=== PATIENT | female | born 1990 | race American Indian/Alaskan Native ===

== ENCOUNTER 2017-06-13 20:32 | Emergency (ER) | payer OTHER, MEDICAID ==
[2017-06-14] MEDS ORDERED: MOTRIN PO ONE (01:02)
[2017-06-14] MEDS ORDERED: FLEXERIL PO ONE (01:03)
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
[2017-06-14 05:37] VITALS: BP 121/81
== END 2017-06-14 01:35 | disposition home or self-care (01) ==
LOC: ED 20:32
DX: Z04.3 Encounter for examination and observation following other accident (principal); G43.909 Migraine, unspecified, not intractable, without status migrainosus; Z90.49 Acquired absence of other specified parts of digestive tract; Z88.0 Allergy status to penicillin; V89.2XXA Person injured in unspecified motor-vehicle accident, traffic, initial encounter; Y93.89 Activity, other specified; Y99.8 Other external cause status; Y92.89 Other specified places as the place of occurrence of the external cause
CPT/HCPCS: 99282

== ENCOUNTER 2018-12-07 20:22 | Emergency (ER) | payer MEDICAID ==
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
[2018-12-07 21:33] LABS: Basophils # (Auto) 0.1 K/mm3 (0.0-0.1); Basophils % (Auto) 0.9 % (0.0-1.8); Eosinophils # (Auto) 0.1 K/mm3 (0.0-0.4); Eosinophils % (Auto) 1.1 % (0.0-4.3); Hematocrit 35.5 % (30.3-42.9); Hemoglobin 12.4 gm/dl (10.1-14.3); Lymphocytes # (Auto) 4.4 K/mm3 (1.2-5.4); Lymphocytes % (Auto) 40.1 % (13.4-35.0); Mean Corpuscular HGB Conc 35 % (30-34); Mean Corpuscular Volume 86 fl (79-97); Monocytes # (Auto) 0.7 K/mm3 (0.0-0.8); Monocytes % (Auto) 6.7 % (0.0-7.3); Platelet Count 221 K/mm3 (140-440); Red Blood Count 4.13 M/mm3 (3.65-5.03); Red Cell Distribution Width 13.9 % (13.2-15.2)
[2018-12-07 22:01] LABS: Bilirubin,Urine NEG (Negative); Blood,Urine NEG (Negative); Color,Urine Yellow (Yellow); Mucus,Urine 2+ /HPF; Protein,Urine <15 mg/dL mg/dL (Negative); Urobilinogen,Urine < 2.0 mg/dL (<2.0)
--- NOTE | 2018-12-08 00:30 | Ultrasound Report ---
PROCEDURE: US OB TRANSVAGINAL TECHNIQUE: Transvaginal imaging was obtained of the pelvis. HISTORY: 4 weeks preg, vag bleeding COMPARISONS: None FINDINGS: The uterus is anteverted measuring 9.6 x 5.1 x 5.9 cm. The endometrial thickness is 15 mm. There is n o evidence of an intrauterine gestational sac. There is minimal free fluid in the cul-de-sac. The left ovary is normal in size contour and echotexture and blood flow measured 3.7 x 1.7 x 2.8 cm. The right ovary measures 5.2 x 3.0 x 3.4 cm. Within the right ovary is a hypoechoic complex cyst omar uring up to 2.1 cm diameter possibly representing hemorrhagic cyst. There is also a hyperechoic 1.8 c m nodular density in the right ovary. The blood flow is normal bilaterally. IMPRESSION: No evidence of an IUP or ectopic at this time. Follow-up study recommended. Probable 2.1 cm hemorrhagic cyst in the right ovary. 1.8 cm hyperechoic nodular density in the right ovary. This is indeterminate.. This document is electronically signed by Torres Gastelum MD., December 08 2018 12:28:17 AM ET
--- NOTE | 2018-12-08 00:42 | Ultrasound Report ---
PROCEDURE: US OB <= 14 WEEKS FETUS TECHNIQUE: Transabdominal imaging was obtained of the pelvis. HISTORY: 4 weeks preg, vag bleeding COMPARISONS: None FINDINGS: The uterus is anteverted measuring 9.6 x 5.1 x 5.9 cm. The endometrial thickness is 15 mm. There is n o evidence of an intrauterine gestational sac. There is minimal free fluid in the cul-de-sac. The left ovary is normal in size contour blood flow and echotexture measuring 3.7 x 1.7 x 2.8 cm. The right ovary measures 5.2 x 3.0 x 3.4 cm. Within the right ovary is a hypoechoic 2.1 cm cyst most likely representing hemorrhagic cyst. There is also a hyperechoic 1.8 cm nodule in the right ovary wh ich is indeterminate. The blood flow is normal to the right ovary. IMPRESSION: No evidence of an IUP or ectopic sign. Follow-up study recommended. 2.1 cm hemorrhagic cyst in the right ovary. 1.8 cm hyperechoic nodule in the right ovary which is indeterminate.. This document is electronically signed by Torres Gastelum MD., December 08 2018 12:40:21 AM ET
[2018-12-08] MEDS ORDERED: TYLENOL PO ONE (01:09)
--- NOTE | 2018-12-08 01:09 | Emergency Department Report ---
ED Female HPI - General Chief complaint: Vaginal Bleeding Stated complaint: 4WKS AND BLEEDING Time Seen by Provider: 12/07/18 21:16 Source: patient Mode of arrival: Ambulatory Limitations: No Limitations - History of Present Illness Initial comments: 28 0 -[place] female presents to the emergency room stating she is 4 weeks and having vaginal bleeding and pain in her lower abdomen and back. She reports this onset started about 1:00pm. 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 Patient is 4 para [address] she is followed by Dr[address] Mccartney [employer]. He reports that the pain in her abdomen and back is crampy. MD Complaint: vaginal bleeding -: This afternoon Time: 13:00 Location: suprapubic Radiation: other (back) Severity scale (0 -10): 10 Quality: cramping Consistency: intermittent Improves with: none Worsens with: none Are you Now?: Yes Last Menstrual Period: 11/08/18 EDC: 08/15/19 Associated Symptoms: vaginal bleeding, abdominal pain - Related Data Sexually active: Yes : 4 Para: 3 Previous Rx's Medication Instructions Recorded Last Taken Type Cyclobenzaprine [Flexeril 10 MG 10 mg PO ONCE PRN #12 tablet 06/14/17 Unknown Rx TAB] Ibuprofen [Motrin] 800 mg PO Q8HR PRN #30 tablet 06/14/17 Unknown Rx Allergies Allergy/AdvReac Type Severity Reaction Status Date / Time Penicillins Allergy Hives Verified 07/09/15 02:02 ED Review of Systems ROS: Stated complaint: 4WKS AND BLEEDING Other details as noted in HPI Comment: All other systems reviewed and negative Gastrointestinal: abdominal pain Musculoskeletal: back pain ED Past Medical Hx - Past Medical History Hx Hypertension: No Hx Diabetes: No Hx Deep Vein Thrombosis: No Hx Renal Disease: No Hx Sickle Cell Disease: No Hx Headaches / Migraines: Yes Hx Seizures: No Hx Asthma: No Additional medical history: Vaginal delivery x 2 - Surgical History Hx Appendectomy: Yes - Social History Smoking Status: Never Smoker Substance Use Type: None - Medications Home Medications: Home Medications Medication Instructions Recorded Confirmed Last Taken Type Cyclobenzaprine [Flexeril 10 MG 10 mg PO ONCE PRN #12 tablet 06/14/17 Unknown Rx TAB] Ibuprofen [Motrin] 800 mg PO Q8HR PRN #30 tablet 06/14/17 Unknown Rx ED Physical Exam - General Limitations: No Limitations General appearance: alert, in no apparent distress - Head Head exam: Present: atraumatic, normocephalic - Eye Eye exam: Present: EOMI - ENT ENT exam: Present: mucous membranes moist - Respiratory Respiratory exam: Present: normal lung sounds bilaterally. Absent: respiratory distress - Cardiovascular Cardiovascular Exam: Present: regular rate, normal rhythm. Absent: systolic murmur, diastolic murmur, rubs, gallop - GI/Abdominal GI/Abdominal exam: Present: soft, tenderness, normal bowel sounds - Neurological Exam Neurological exam: Present: alert, oriented X3 - Psychiatric Psychiatric exam: Present: normal affect, normal mood - Skin Skin exam: Present: warm, dry, intact, normal color. Absent: rash ED Course Vital Signs 12/07/18 12/07/18 20:28 21:17 Temperature 98.3 F 98.3 F Pulse Rate 77 74 Respiratory 18 18 Rate Blood Pressure 138/95 138/95 O2 Sat by Pulse 100 100 Oximetry ED Medical Decision Making - Lab Data Result diagrams: 12/07/18 21:21 Lab Results 12/07/18 12/07/18 12/07/18 Range/Units 21:21 21:21 21:36 WBC 10.9 (4.5-11.0) K/mm3 RBC 4.13 (3.65-5.03) M/mm3 Hgb 12.4 (10.1-14.3) gm/dl Hct 35.5 (30.3-42.9) % MCV 86 (79-97) fl MCH 30 (28-32) pg MCHC 35 H (30-34) % RDW 13.9 (13.2-15.2) % Plt Count 221 (140-440) K/mm3 Lymph % (Auto) 40.1 H (13.4-35.0) % [place] % (Auto) 6.7 (0.0-7.3) % Eos % (Auto) 1.1 (0.0-4.3) % Baso % (Auto) 0.9 (0.0-1.8) % Lymph # 4.4 (1.2-5.4) K/mm3 [place] # 0.7 (0.0-0.8) K/mm3 Eos # 0.1 (0.0-0.4) K/mm3 Baso # 0.1 (0.0-0.1) K/mm3 Seg Neutrophils % 51.2 (40.0-70.0) % Seg Neutrophils # 5.6 (1.8-7.7) K/mm3 HCG, Quant 303.6 H (0-4) mIU/mL Urine Color Yellow (Yellow) Urine Turbidity Slightly-cloudy (Clear) Urine pH 6.0 (5.0-7.0) Ur Specific [place] 1.035 H (1.003-1.030) Urine Protein <15 mg/dl (Negative) mg/dL Urine Glucose (UA) Neg (Negative) mg/dL Urine Ketones Neg (Negative) mg/dL Urine Blood Neg (Negative) Urine Nitrite Neg (Negative) Urine Bilirubin Neg (Negative) Urine Urobilinogen < 2.0 (<2.0) mg/dL Ur Leukocyte Esterase Tr (Negative) Urine WBC (Auto) 1.0 (0.0-6.0) /HPF Urine RBC (Auto) 1.0 (0.0-6.0) /HPF U Epithel Cells (Auto) 10.0 (0-13.0) /HPF Urine Mucus 2+ /HPF - Radiology Data Radiology results: report reviewed Loc: ED Attending Dr: Ordering Physician: SERAFIN BOLTON Date of Service: 12/07/18 Procedure(s): US OB transvaginal Accession Number(s): [id number] cc: SERAFIN BOLTON PROCEDURE: US OB TRANSVAGINAL TECHNIQUE: Transvaginal imaging was obtained of the pelvis. HISTORY: 4 weeks preg, vag bleeding COMPARISONS: None FINDINGS: The uterus is anteverted measuring 9.6 x 5.1 x 5.9 cm. The endometrial thickness is 15 mm. There is no evidence of an intrauterine gestational sac. There is minimal free fluid in the cul-de-sac. The left ovary is normal in size contour and echotexture and blood flow measured 3.7 x 1.7 x 2.8 cm. The right ovary measures 5.2 x 3.0 x 3.4 cm. Within the right ovary is a hypoechoic complex cyst measuring up to 2.1 cm diameter possibly representing hemorrhagic cyst. There is also a hyperechoic 1.8 cm nodular density in the right ovary. The blood flow is normal bilaterally. IMPRESSION: No evidence of an IUP or ectopic at this time. Follow-up study recommended. Probable 2.1 cm hemorrhagic cyst in the right ovary. 1.8 cm hyperechoic nodular density in the right ovary. This is indeterminate.. This document is electronically signed by Wan Gastelum MD., December 08 2018 12:28:17 AM ET Transcribed By: RB Dictated By: WAN GASTELUM MD Electronically Authenticated By: WAN GASTELUM MD Signed Date/Time: 12/08/18 0030 - Medical Decision Making Patient: KIMO MENON MR#: [id number] : 1990 Acct:[id number] Age/Sex: 28 / F ADM Date: 12/07/18 DD/ 2359 TD/TT: 12/08/18 0000 Critical care attestation.: If time is entered above; I have spent that time in minutes in the direct care of this critically ill patient, excluding procedure time. ED Disposition Clinical Impression: Threatened miscarriage in early Disposition: DC-01 TO HOME OR SELFCARE Is pt being admited?: No Does the pt Need Aspirin: No Condition: Stable Instructions: Threatened Miscarriage (ED) Additional Instructions: Please return to the emergency room or your [employer] provider in 2 days to have a repeat hCG. You can take Tylenol for your abdominal cramping. Referrals: TOÑO MCCARTNEY MD [Referring] - 3-5 Days Forms: Work/School Release Form(ED), Accompanied Note
[2018-12-08 19:41] VITALS: BP 138/95
== END 2018-12-08 01:30 | disposition home or self-care (01) ==
LOC: ED 20:22
DX: O20.0 Threatened abortion (principal); O99.351 Diseases of the nervous system complicating pregnancy, first trimester; G43.909 Migraine, unspecified, not intractable, without status migrainosus; Z3A.01 Less than 8 weeks gestation of pregnancy; Z88.0 Allergy status to penicillin; Z90.49 Acquired absence of other specified parts of digestive tract
CPT/HCPCS: 36415; 76801; 76817; 81001; 84702; 85025; 99284

== ENCOUNTER 2021-12-07 02:59 | Emergency (ER) | payer SELFPAY ==
[2021-12-07 03:05] VITALS: BP 118/68
== END 2021-12-07 03:35 | disposition left against medical advice (07) ==
LOC: ED 02:59
DX: R10.9 Unspecified abdominal pain (principal); Z53.21 Procedure and treatment not carried out due to patient leaving prior to being seen by health care provider
CPT/HCPCS: 99283

== ENCOUNTER 2022-04-20 23:22 | Emergency (ER) | payer SELFPAY ==
[2022-04-21 03:22] LABS: Basophils % (Auto) 0.5 % (0.0-1.8); Eosinophils # (Auto) 0.2 K/mm3 (0.0-0.4); Hematocrit 29.5 % (30.3-42.9); Hemoglobin 9.7 gm/dl (10.1-14.3); Lymphocytes # (Auto) 3.2 K/mm3 (1.2-5.4); Lymphocytes % (Auto) 36.6 % (13.4-35.0); Mean Corpuscular HGB Conc 33 % (30-34); Mean Corpuscular Volume 79 fl (79-97); Monocytes # (Auto) 0.7 K/mm3 (0.0-0.8); Monocytes % (Auto) 8.4 % (0.0-7.3); Platelet Count 270 K/mm3 (140-440); Red Blood Count 3.75 M/mm3 (3.65-5.03)
[2022-04-21 03:32] LABS: Blood Urea Nitrogen 11 mg/dL (7-17); Hemolysis Index 2
[2022-04-21 03:40] LABS: BUN/Creatinine Ratio 18
[2022-04-21 05:22] LABS: Color,Urine Yellow (Yellow)
[2022-04-21 05:27] LABS: Mucus,Urine 3+ /HPF
[2022-04-21 05:33] LABS: Ictotest,Urine Negative (Negative)
[2022-04-21] MEDS ORDERED: FAMOTIDINE 20 MG/2 ML INJ IV ONE (07:44)
[2022-04-21] MEDS ORDERED: DICYCLOMINE 20 MG TAB PO ONE (07:44)
[2022-04-21] MEDS ORDERED: METOCLOPRAMIDE 10 MG/2 ML INJ IV ONE (07:44)
[2022-04-21] MEDS ORDERED: diphenhydrAMINE 50 MG/ML VIAL IV ONE (07:44)
[2022-04-21] MEDS ORDERED: POTASSIUM CHLORIDE ER 20 MEQ TAB PO ONE (07:44)
[2022-04-21] MEDS ORDERED: LIDOCAINE VISCOUS 2% 15 ML ORAL LIQD PO ONE (07:44)
[2022-04-21] MEDS ORDERED: SODIUM CHLORIDE 0.9% 1000 ML 1,000 ML IV ONE (07:44)
[2022-04-21 09:45] LABS: HCG Qualitative,Urine Negative (Negative)
--- NOTE | 2022-04-21 10:14 | Emergency Department Report ---
ED Abdominal Pain HPI - General Chief Complaint: Abdominal Pain Stated Complaint: PAIN IN LOWER AB Time Seen by Provider: 04/21/22 07:43 Source: patient Mode of arrival: Ambulatory Limitations: No Limitations - History of Present Illness Initial Comments: This is a 31-year-old female nontoxic, well nourished in appearance, no acute signs of distress presents to the ED with c/o of nausea and vomiting and abdominal pain several days. Patient describes vomiting as food content and yellow gastric acid. Patient describes abdominal pain as cramping and aching with level of 8/10 diffuse. Patient denies chest pain, short of breath, fever, hemoptysis, blood in stool, chills, headache, stiff neck, numbness or tingling. Patient denies any diarrhea or constipation. Denies any blood in stool. Patient denies any recent travels. Patient stated allergies to PCN. MD Complaint: abdominal pain -: days(s) Location: diffuse Radiation: none Migration to: no migration Severity scale (0 -10): 8 Quality: cramping, aching Consistency: constant Improves With: nothing Worsens With: nothing Associated Symptoms: nausea, vomiting. denies: diarrhea, fever, chills, constipation, dysuria, hematemesis, hematochezia, melena, hematuria, anorexia, syncope - Related Data Previous Rx's Medication Instructions Recorded Last Taken Type Cyclobenzaprine [Flexeril 10 MG 10 mg PO ONCE PRN #12 tablet 06/14/17 Unknown Rx TAB] Ibuprofen [Motrin] 800 mg PO Q8HR PRN #30 tablet 06/14/17 Unknown Rx Nitrofurantoin [place]/M-Cryst 100 mg PO Q12HR 10 Days #20 capsule 03/27/20 Unknown Rx [Macrobid CAP] metroNIDAZOLE [Flagyl] 500 mg PO Q8HR 7 Days #21 tablet 03/27/20 Unknown Rx Dicyclomine [Bentyl] 10 mg PO Q12H PRN #12 capsule 04/21/22 Unknown Rx Ondansetron [Zofran Odt] 4 mg PO Q12H PRN #12 tab.rapdis 04/21/22 Unknown Rx Allergies Allergy/AdvReac Type Severity Reaction Status Date / Time Penicillins Allergy Hives Verified 07/09/15 02:02 ED Review of Systems ROS: Stated complaint: PAIN IN LOWER AB Other details as noted in HPI Comment: All other systems reviewed and negative Constitutional: denies: chills, fever Eyes: denies: eye pain, eye discharge, vision change ENT: denies: ear pain, throat pain Respiratory: denies: cough, shortness of breath, wheezing Cardiovascular: denies: chest pain, palpitations Endocrine: no symptoms reported Gastrointestinal: abdominal pain, nausea, vomiting. denies: diarrhea Genitourinary: denies: urgency, dysuria, discharge Musculoskeletal: denies: back pain, joint swelling, arthralgia Skin: denies: rash, lesions Neurological: denies: headache, weakness, paresthesias Psychiatric: denies: anxiety, depression Hematological/Lymphatic: denies: easy bleeding, easy bruising ED Past Medical Hx - Past Medical History Previous Medical History?: Yes Hx Hypertension: No Hx Diabetes: No Hx Deep Vein Thrombosis: No Hx Renal Disease: No Hx Sickle Cell Disease: No Hx Headaches / Migraines: Yes Hx Seizures: No Hx Asthma: No Additional medical history: Vaginal delivery x 2 - Surgical History Past Surgical History?: Yes Hx Appendectomy: Yes - Social History Smoking Status: Never Smoker Substance Use Type: None - Medications Home Medications: Home Medications Medication Instructions Recorded Confirmed Last Taken Type Cyclobenzaprine [Flexeril 10 MG 10 mg PO ONCE PRN #12 tablet 06/14/17 Unknown Rx TAB] Ibuprofen [Motrin] 800 mg PO Q8HR PRN #30 tablet 06/14/17 Unknown Rx Nitrofurantoin [place]/M-Cryst 100 mg PO Q12HR 10 Days #20 capsule 03/27/20 Unknown Rx [Macrobid CAP] metroNIDAZOLE [Flagyl] 500 mg PO Q8HR 7 Days #21 tablet 03/27/20 Unknown Rx Dicyclomine [Bentyl] 10 mg PO Q12H PRN #12 capsule 04/21/22 Unknown Rx Ondansetron [Zofran Odt] 4 mg PO Q12H PRN #12 tab.rapdis 04/21/22 Unknown Rx ED Physical Exam - General Limitations: No Limitations General appearance: alert, in no apparent distress - Head Head exam: Present: atraumatic, normocephalic - Eye Eye exam: Present: normal appearance - Neck Neck exam: Present: normal inspection, full ROM. Absent: lymphadenopathy - Respiratory Respiratory exam: Present: normal lung sounds bilaterally. Absent: respiratory distress, wheezes, rales, rhonchi, stridor, chest wall tenderness, accessory muscle use, decreased breath sounds, prolonged expiratory - Cardiovascular Cardiovascular Exam: Present: regular rate, normal rhythm, normal heart sounds. Absent: bradycardia, tachycardia, irregular rhythm, systolic murmur, diastolic murmur, rubs, gallop - GI/Abdominal GI/Abdominal exam: Present: soft, tenderness (diffuse), normal bowel sounds. Absent: distended, guarding, rebound, rigid, diminished bowel sounds - Extremities Exam Extremities exam: Present: full ROM - Back Exam Back exam: Present: normal inspection, full ROM. Absent: tenderness, CVA tenderness (R), CVA tenderness (L), muscle spasm, paraspinal tenderness, vertebral tenderness, rash noted - Neurological Exam Neurological exam: Present: alert, oriented X3, normal gait - Psychiatric Psychiatric exam: Present: normal affect, normal mood - Skin Skin exam: Present: warm, dry, intact, normal color. Absent: rash ED Course Vital Signs 04/20/22 04/21/22 23:54 02:19 Temperature 98.8 F Pulse Rate 59 L 58 L Respiratory 18 18 Rate Blood Pressure 155/91 Blood Pressure 151/81 [Right] O2 Sat by Pulse 100 99 Oximetry - Reevaluation(s) Reevaluation #1: 04/21/22 10:13 Patient is speaking in full sentences with no signs of distress noted. ED Medical Decision Making - Lab Data Result diagrams: 04/21/22 03:02 04/21/22 03:02 Lab Results 04/21/22 04/21/22 04/21/22 Range/Units 03:02 03:02 04:47 WBC 8.7 (4.5-11.0) K/mm3 RBC 3.75 (3.65-5.03) M/mm3 Hgb 9.7 L (10.1-14.3) gm/dl Hct 29.5 L (30.3-42.9) % MCV 79 (79-97) fl MCH 26 L (28-32) pg MCHC 33 (30-34) % RDW 15.0 (13.2-15.2) % Plt Count 270 (140-440) K/mm3 Lymph % (Auto) 36.6 H (13.4-35.0) % [place] % (Auto) 8.4 H (0.0-7.3) % Eos % (Auto) 2.0 (0.0-4.3) % Baso % (Auto) 0.5 (0.0-1.8) % Lymph # (Auto) 3.2 (1.2-5.4) K/mm3 [place] # (Auto) 0.7 (0.0-0.8) K/mm3 Eos # (Auto) 0.2 (0.0-0.4) K/mm3 Baso # (Auto) 0.0 (0.0-0.1) K/mm3 Seg Neutrophils % 52.5 (40.0-70.0) % Seg Neutrophils # 4.6 (1.8-7.7) K/mm3 Sodium 140 (137-145) mmol/L Potassium 3.2 L (3.6-5.0) mmol/L Chloride 105.0 (98-107) mmol/L Carbon Dioxide 23 (22-30) mmol/L Anion Gap 15 mmol/L BUN 11 (7-17) mg/dL Creatinine 0.6 (0.6-1.2) mg/dL Estimated GFR > 60 ml/min BUN/Creatinine Ratio 18 % Glucose 100 (65-100) mg/dL Calcium 9.0 (8.4-10.2) mg/dL Amylase 43 (27-131) units/L Lipase 28 (13-60) units/L Urine Color Yellow (Yellow) Urine Turbidity Cloudy (Clear) Specific [place] (Man) 1.030 (1.003-1.030) Ur Protein (Man) 2+ (Negative) mg/dL Ur Ketones (Man) Negative (Negative) Ur Nitrite (Man) Negative (Negative) Urine Bilirubin (Man) Small (Negative) Urine Ictotest Negative (Negative) Leukocyte Esterase (Man) Negative (Negative) Urine WBC (Auto) 4.0 (0.0-6.0) /HPF Urine RBC (Auto) 10.0 (0.0-6.0) /HPF U Epithel Cells (Auto) 30.0 H (0-13.0) /HPF Urine RBC (Manual) 3+ (Negative) Urine Mucus 3+ /HPF Urine HCG, Qual (Negative) 04/21/22 Range/Units 04:47 WBC (4.5-11.0) K/mm3 RBC (3.65-5.03) M/mm3 Hgb (10.1-14.3) gm/dl Hct (30.3-42.9) % MCV (79-97) fl MCH (28-32) pg MCHC (30-34) % RDW (13.2-15.2) % Plt Count (140-440) K/mm3 Lymph % (Auto) (13.4-35.0) % [place] % (Auto) (0.0-7.3) % Eos % (Auto) (0.0-4.3) % Baso % (Auto) (0.0-1.8) % Lymph # (Auto) (1.2-5.4) K/mm3 [place] # (Auto) (0.0-0.8) K/mm3 Eos # (Auto) (0.0-0.4) K/mm3 Baso # (Auto) (0.0-0.1) K/mm3 Seg Neutrophils % (40.0-70.0) % Seg Neutrophils # (1.8-7.7) K/mm3 Sodium (137-145) mmol/L Potassium (3.6-5.0) mmol/L Chloride (98-107) mmol/L Carbon Dioxide (22-30) mmol/L Anion Gap mmol/L BUN (7-17) mg/dL Creatinine (0.6-1.2) mg/dL Estimated GFR ml/min BUN/Creatinine Ratio % Glucose (65-100) mg/dL Calcium (8.4-10.2) mg/dL Amylase (27-131) units/L Lipase (13-60) units/L Urine Color (Yellow) Urine Turbidity (Clear) Specific [place] (Man) (1.003-1.030) Ur Protein (Man) (Negative) mg/dL Ur Ketones (Man) (Negative) Ur Nitrite (Man) (Negative) Urine Bilirubin (Man) (Negative) Urine Ictotest (Negative) Leukocyte Esterase (Man) (Negative) Urine WBC (Auto) (0.0-6.0) /HPF Urine RBC (Auto) (0.0-6.0) /HPF U Epithel Cells (Auto) (0-13.0) /HPF Urine RBC (Manual) (Negative) Urine Mucus /HPF Urine HCG, Qual Negative (Negative) - Radiology Data [facility] [address] [place] [address] Cat Scan Report Signed Patient: KIMO MENON MR#: [id number] : 1990 Acct:[id number] Age/Sex: 31 / F ADM Date: 04/20/22 Loc: ED Attending Dr: Ordering Physician: EDENILSON LOPEZ NP Date of Service: 04/21/22 Procedure(s): CT abdomen pelvis w con Accession Number(s): [id number] cc: EDENILSON LOPEZ NP CT ABDOMEN AND PELVIS WITH CONTRAST INDICATION / CLINICAL INFORMATION: abd pain with n/v. TECHNIQUE: Axial CT images were obtained through the abdomen and pelvis after Omnipaque 350, 90 cc IV contrast. All CT scans at this location are performed using CT dose reduction for ALARA by means of automated exposure control. COMPARISON: None available. FINDINGS: LOWER CHEST: No significant abnormality. LIVER: No significant abnormality. GALLBLADDER: No significant abnormality. BILE DUCTS: No significant abnormality. PANCREAS: No significant abnormality. SPLEEN: No significant abnormality. ADRENALS: No significant abnormality. RIGHT KIDNEY / URETER: 2 mm nonobstructing stone. LEFT KIDNEY / URETER: No significant abnormality. STOMACH / SMALL BOWEL: No significant abnormality. COLON: No significant abnormality. APPENDIX: Not identified. PERITONEUM: No free fluid. No free air. No fluid collection. LYMPH NODES: No significant adenopathy. VASCULAR STRUCTURES: No significant abnormality. URINARY BLADDER: No significant abnormality. REPRODUCTIVE ORGANS: 3 cm right ovarian dermoid. ADDITIONAL FINDINGS: Small fat-containing umbilical hernia. SKELETAL SYSTEM: No significant abnormality. IMPRESSION: 1. Negative for obstruction or localized inflammation. 2. Right ovarian dermoid. 3. 2 mm nonobstructing right renal stone. Signer Name: Javon Morales MD Signed: 04/21/2022 10:52 AM Workstation Name: [id number] Transcribed By: ES Dictated By: Javon Morales MD Electronically Authenticated By: Javon Morales MD Signed Date/Time: 04/21/22 1052 DD/ 1047 TD/TT: - Medical Decision Making This is a 31-year-old female that presents with right renal stone, abdominal pa in with nausea vomiting. Patient is stable and was examined by me. There is no abdominal tenderness. Labs obtained. UA obtained. CT of abdomen obtained and dictated by the radiologist. Patient is notified of the report with no questions noted by the patient. Vital signs are stable prior to discharge. Patient received medical treatment in the ED which patient stated symptoms has resovled and subsided. Was instructed note to operate any machinery due to possible drowsiness and stated someone will drive the patient home. A by mouth challenge has been obtained and patient tolerated well with no nausea vomiting. Patient was also instructed to Follow-up with a primary care doctor in 3-5 days or if symptoms worsen and continue return to emergency room as soon as possible. At time of discharge, the patient does not seem toxic or ill in appearance. No acute signs of distress noted. Patient agrees to discharge treatment plan of care. No further questions noted by the patient. Critical care attestation.: If time is entered above; I have spent that time in minutes in the direct care of this critically ill patient, excluding procedure time. ED Disposition Clinical Impression: Right kidney stone Abdominal pain Qualifiers: Abdominal location: generalized Qualified Code(s): R10.84 - Generalized abdominal pain Nausea & vomiting Qualifiers: Vomiting type: unspecified Qualified Code(s): R11.2 - Nausea with vomiting, unspecified Disposition: 01 HOME / SELF CARE / HOMELESS Is pt being admited?: No Does the pt Need Aspirin: No Condition: Stable Instructions: Abdominal Pain (ED), Nausea and Vomiting, Adult, Abdominal Pain, Adult, Kidney Stones, [id number] Additional Instructions: Follow-up with a primary care doctor in 3-5 days or if symptoms worsen and continue return to emergency room as soon as possible. Prescriptions: Dicyclomine [Bentyl] 10 mg PO Q12H PRN #12 capsule PRN Reason: abdominal pain Ondansetron [Zofran Odt] 4 mg PO Q12H PRN #12 tab.rapdis PRN Reason: Nausea Referrals: KALEY JACKSON MD [Primary Care Provider] - 3-5 Days PRIMARY CAREMD [Referring] - 3-5 Days Forms: Work/School Release Form(ED) Time of Disposition: 11:07
--- NOTE | 2022-04-21 10:56 | Cat Scan Report ---
CT ABDOMEN AND PELVIS WITH CONTRAST INDICATION / CLINICAL INFORMATION: abd pain with n/v. TECHNIQUE: Axial CT images were obtained through the abdomen and pelvis after Omnipaque 350, 90 cc IV contrast. All CT scans at this location are performed using CT dose reduction for ALARA by means of automated exposure control. COMPARISON: None available. FINDINGS: LOWER CHEST: No significant abnormality. LIVER: No significant abnormality. GALLBLADDER: No significant abnormality. BILE DUCTS: No significant abnormality. PANCREAS: No significant abnormality. SPLEEN: No significant abnormality. ADRENALS: No significant abnormality. RIGHT KIDNEY / URETER: 2 mm nonobstructing stone. LEFT KIDNEY / URETER: No significant abnormality. STOMACH / SMALL BOWEL: No significant abnormality. COLON: No significant abnormality. APPENDIX: Not identified. PERITONEUM: No free fluid. No free air. No fluid collection. LYMPH NODES: No significant adenopathy. VASCULAR STRUCTURES: No significant abnormality. URINARY BLADDER: No significant abnormality. REPRODUCTIVE ORGANS: 3 cm right ovarian dermoid. ADDITIONAL FINDINGS: Small fat-containing umbilical hernia. SKELETAL SYSTEM: No significant abnormality. IMPRESSION: 1. Negative for obstruction or localized inflammation. 2. Right ovarian dermoid. 3. 2 mm nonobstructing right renal stone. Signer Name: Javon Morales MD Signed: 04/21/2022 10:52 AM Workstation Name: [id number]
[2022-04-21 11:48] VITALS: BP 158/97
== END 2022-04-21 11:47 | disposition home or self-care (01) ==
LOC: ED 23:22
DX: N20.0 Calculus of kidney (principal); R10.9 Unspecified abdominal pain; R11.2 Nausea with vomiting, unspecified; Z88.0 Allergy status to penicillin; Z90.89 Acquired absence of other organs
CPT/HCPCS: 36415; 74177; 80048; 81001; 81025; 82150; 83690; 85025; 96361; 96374; 96375; 99284; J1200; J2765; J3490; J7030; Q9967